=== PATIENT | female | born 1935 | race Caucasian/White ===

== ENCOUNTER 2016-10-17 06:42 | Observation (INO) | payer OTHER ==
[~2016-10-17] VITALS: Ht 157.5 cm; Wt 69.4 kg
--- NOTE | ~2016-10-17 | EKG ---
[place] [address] [facility] [place] [address] ELECTROCARDIOGRAM REPORT Name: ROSA EDUARDO Braden Room #: [facility]#: [id number] Admission: 10/17/16 Attend Phys: Discharge: Date of : 33 Report #: [id number] THIS REPORT FOR: //name// ED Test Date: 2016-10-17 Test Time: 06:48:21 Pat Name: ROSA EDUARDO Department: Room: Gender: F Safety Coordinator: JAIMIE : 1935 Requested By: Mary Engel Order Number: [id number] MD: Nabor Ye Measurements Intervals [place] Rate: 68 P: -29 ID: 126 QRS: 18 QRSD: 91 T: 45 QT: 503 QTc: 536 Interpretive Statements Sinus rhythm Abnormal R-wave progression, early transition Minimal ST depression, anterolateral leads Prolonged QT interval Compared to ECG 08/22/2016 16:18:13 ST (T wave) deviation now present Prolonged QT interval now present sinus rhythm has replaced probable atrial fibrillation Electronically Signed On 10-17-2016 8:42:27 CDT by Nabor Ye [email or web address] <ELECTRONICALLY SIGNED> By: Nabor Ye MD, FACC 10/17/16 [id number] Nabor Ye MD, [facility] /EPI
--- NOTE | ~2016-10-17 | 2DMMODE ---
[facility] [place] [address] 2 D/M-MODE ECHOCARDIOGRAM Name: JAYCEROSA Room #: 419-P [facility] IN .R.#: [id number] Admission: 10/17/16 Attend Phys: Kalen Mathur MD, Discharge: Date of : 33 Date of Service: 10/18/16 1153 Report #: [id number] THIS REPORT FOR: //name// APPROVED REPORT Study performed: 10/18/2016 09:40:24 EXAM: Comprehensive 2D, Doppler, and color-flow Echocardiogram Patient Location: Echo lab/Room 419 Blood Pressure: 137/58 mmHg HR: 73 bpm Rhythm: Irregular Other Information Study Quality: Good Indications Chest discomfort, short of breath, HTN, HLP 2D Dimensions RVDd: 31.27 mm LVEF(%): 55.28 (>50%) IVSd: 9.18 (7-11mm) LVOT Diam: 19.88 (18-24mm) LVDd: 42.22 mm PWd: 9.57 (7-11mm) LVDs: 30.20 (25-40mm) Aortic Root: 29.88 mm Sharp's LVEF: 55.28 % Volumes Left Atrial Volume (Systole) Single Plane 4CH: 39.41 mL Single Plane 2CH: 42.95 mL LA ESV Index: 27.00 mL/m2 Aortic Valve AoV Peak Jerardo.: 1.35 m/s AO Peak Gr.: 7.25 mmHg LV Max P.94 mmHg LV Max: 0.86 m/s Mitral Valve MV PHT: 80.51 ms MV E Max Jerardo.: 0.68 m/s E/A Ratio: 0.9 MV A Jerardo.: 0.79 m/s MV Decel. Time: 277.61 ms [facility] [place] [address] 2 D/M-MODE [facility]ARDIOGRAM [facility] #: [facility]-P ADM IN M.R.#: [id number] Admission: 10/17/16 Attend Phys: Kalen Mathur MD, Discharge: Date of : 33 Date of Service: 10/18/16 1153 Report #: [id number] Pulmonary Valve PV Peak Jerardo.: 0.98 m/s PV Peak Gr.: 3.86 mmHg Tricuspid Valve TR Peak Jerardo.: 2.73 m/s RAP Estimate: 5.00 mmHg TR Peak Gr.: 29.74 mmHg RVSP: 35.00 mmHg Left Ventricle The left ventricle is normal size. There is normal LV segmental wall motion. There is normal left ventricular wall thickness. Left ventricular systolic function is normal. LVEF is 55%. Grade I - abnormal relaxation pattern. Right Ventricle The right ventricle is normal size. The right ventricular systolic function is normal. Atria The left atrium size is normal. The right atrium size is normal. Aortic Valve The Aortic valve is sclerotic. No aortic regurgitation is present. There is no aortic valvular stenosis. Mitral Valve Mitral valve leaflets are mildly thickened. Mild mitral annular calcification. Mild mitral regurgitation. Tricuspid Valve The tricuspid valve is normal in structure. There is mild to moderate tricuspid regurgitation. The right atrial pressure is estimated at 5 mmHg. There is mild pulmonary hypertension with an estimated PAP of 35mmHg. Pulmonic Valve The pulmonary valve is normal in structure. Trace pulmonic regurgitation. Great Vessels The aortic root is normal in size. Ascending aorta is not well visualized. IVC is normal in size and collapses >50% with inspiration. Pericardium [facility] [address] [place] [address] 2 D/M-MODE [facility]ARDIOGRAM [facility]: [facility] Room #: 419-P [facility] IN .R.#: [id number] Admission: 10/17/16 Attend Phys: Kalen Mathur MD, Discharge: Date of : 33 Date of Service: 10/18/16 1153 Report #: [id number] There is no pericardial effusion. <Conclusion> The left ventricle is normal size. LVEF is 55%. The Aortic valve is sclerotic. Mitral valve leaflets are mildly thickened. Mild mitral annular calcification. Mild mitral regurgitation. There is mild to moderate tricuspid regurgitation. The right atrial pressure is estimated at 5 mmHg. There is mild pulmonary hypertension with an estimated PAP of 35mmHg. Trace pulmonic regurgitation. <ELECTRONICALLY SIGNED> By: Tera Burns MD 10/18/16 1153 1153 1153 Tera Burns MD /INF
[2016-10-17 06:42] VITALS: BP 110/74
[~2016-10-17 06:42] MED LIST: COLACE100 MG PO; LEVSIN0.125 MG PO; MAXZIDE-25 MG1 EACH PO; MIRALAX17 GM PO; ONDANSETRON HCL4 M2 PO; PRILOSEC20 MG PO; SIMVASTATIN40 MG PO; VOLTAREN GEL 1100 G2 TOP; ZOFRAN4 MG PO
[2016-10-17] MEDS ORDERED: TOPROL XL25 MG PO (07:00)
[2016-10-17] MEDS ORDERED: POTASSIUM20 PO (07:00)
[2016-10-17] MEDS ORDERED: ASPIR 8181 MG PO (07:01)
[2016-10-17] MEDS ORDERED: ANASPAZ0.125 MG SL (07:02)
[2016-10-17 07:03] LABS: HEMATOCRIT 37.8 % (37.0-47.0); HEMOGLOBIN 12.8 gm/dL (12.0-15.0); MCH 27.8 pg (26.0-34.0); MCHC 33.8 g/dL (28.0-37.0); MCV 82.4 fL (80.0-100.0); PLATELET COUNT 215 thou/uL (150-400); RBC 4.59 mil/uL (4.20-5.00); RDW 13.2 % (10.5-14.5); WBC 6.1 thou/uL (4.0-11.0)
[2016-10-17 07:10] LABS: MANUAL DIFF YES
[2016-10-17] MEDS ORDERED: OMEPRAZOLE20 M2 PO (07:11)
[2016-10-17 07:23] LABS: ANION GAP 16 mmol/L (7-16); BUN 12 mg/dL (7-18); CALCIUM 9.3 mg/dL (8.5-10.1); CHLORIDE 90 mmol/L (98-107); CO2 19 mmol/L (21-32); CREATININE 1.2 mg/dL (0.6-1.0); GLUCOSE 120 mg/dL (74-106); POTASSIUM 3.2 mmol/L (3.5-5.1); SODIUM 125 mmol/L (136-145); TROPONIN-I < 0.04 ng/mL (<0.04-0.07)
[2016-10-17 08:10] LABS: URINE BILIRUBIN NEGATIVE (Negative); URINE BLOOD NEGATIVE (Negative); URINE COLOR YELLOW; URINE GLUCOSE-RANDOM* NEGATIVE (Negative); URINE KETONES 2+ (Negative); URINE LEUKOCYTES-REFLEX NEGATIVE (Negative); URINE PROTEIN (DIPSTICK) NEGATIVE (Negative)
[2016-10-17 08:16] LABS: ABSOLUTE NEUTROPHILS 3.5 thou/uL (1.4-8.2); ANISOCYTOSIS SLIGHT; TOTAL CELL COUNT 100
[2016-10-17 10:54] VITALS: BP 152/64
[2016-10-17 11:10] VITALS: BP 166/75
[2016-10-17 15:28] VITALS: BP 135/65
[2016-10-17 20:00] VITALS: BP 140/64
[2016-10-18 03:23] VITALS: BP 122/48
[2016-10-18 06:02] LABS: HEMATOCRIT 34.8 % (37.0-47.0); HEMOGLOBIN 11.6 gm/dL (12.0-15.0); MCH 28.2 pg (26.0-34.0); MCHC 33.4 g/dL (28.0-37.0); MCV 84.2 fL (80.0-100.0); PLATELET COUNT 182 thou/uL (150-400); RBC 4.13 mil/uL (4.20-5.00); RDW 13.2 % (10.5-14.5); WBC 5.4 thou/uL (4.0-11.0)
[2016-10-18 06:17] LABS: MANUAL DIFF YES
[2016-10-18 06:22] LABS: ALBUMIN 2.9 g/dL (3.4-5.0); CALCIUM 8.5 mg/dL (8.5-10.1); CREATININE 1.1 mg/dL (0.6-1.0); TOTAL BILIRUBIN 0.4 mg/dL (<0.1-1.0); TOTAL PROTEIN 6.3 g/dL (6.4-8.2)
[2016-10-18 06:28] LABS: POTASSIUM 4.4 mmol/L (3.5-5.1)
[2016-10-18 07:41] VITALS: BP 137/58
[2016-10-18 08:36] LABS: ANISOCYTOSIS SLIGHT; TOTAL CELL COUNT 100
[2016-10-18 15:16] VITALS: BP 146/81
[2016-10-18 15:43] VITALS: BP 146/81
== END 2016-10-18 16:35 | disposition home or self-care (01) ==
LOC: ER 06:42 → EROBS 08:56 → 4E 08:56
PROVIDERS: Emergency Medicine; Family Medicine
DX: E87.6 Hypokalemia (principal); E83.42 Hypomagnesemia; E87.1 Hypo-osmolality and hyponatremia; R53.81 Other malaise; R11.0 Nausea; I10 Essential (primary) hypertension; E78.5 Hyperlipidemia, unspecified; K21.9 Gastro-esophageal reflux disease without esophagitis; G62.9 Polyneuropathy, unspecified; K58.1 Irritable bowel syndrome with constipation; K44.9 Diaphragmatic hernia without obstruction or gangrene; Z87.891 Personal history of nicotine dependence

== ENCOUNTER → 2017-09-19 | Outpatient (CLI) | payer OTHER ==
[~2017-09-19] MED LIST changes: +ANASPAZ0.125 MG SL; +ASPIR 8181 MG PO; +OMEPRAZOLE20 M2 PO; +POTASSIUM20 PO; +TOPROL XL25 MG PO
== END ==
LOC: RAD 15:04
DX: Z12.31 Encounter for screening mammogram for malignant neoplasm of breast (principal)

== ENCOUNTER → 2017-11-03 | Outpatient (CLI) | payer OTHER | LOC: ULTRA 05:48 | DX: R10.9 Unspecified abdominal pain (principal); Z90.49 Acquired absence of other specified parts of digestive tract ==

== ENCOUNTER → 2018-12-12 | Outpatient (CLI) | payer OTHER | LOC: RAD 10:36 | DX: Z12.31 Encounter for screening mammogram for malignant neoplasm of breast (principal) ==

== ENCOUNTER → 2020-02-18 | Outpatient (CLI) | payer OTHER | LOC: RAD 11:36 | PROVIDERS: ATTEND Family Medicine | DX: Z12.31 Encounter for screening mammogram for malignant neoplasm of breast (principal); N64.89 Other specified disorders of breast ==

== ENCOUNTER 2020-04-07 16:52 | Inpatient (IN) | payer OTHER ==
[~2020-04-07] VITALS: Ht 157.5 cm; Wt 77.1 kg
[2020-04-07 16:58] VITALS: BP 149/68
[2020-04-07 17:25] LABS: URINE BILIRUBIN NEGATIVE (Negative); URINE BLOOD TRACE (Negative); URINE CLARITY CLEAR; URINE COLOR YELLOW; URINE GLUCOSE-RANDOM* NEGATIVE (Negative); URINE KETONES NEGATIVE (Negative); URINE LEUKOCYTES-REFLEX 2+ (Negative); URINE NITRITE-REFLEX NEGATIVE (Negative); URINE PROTEIN (DIPSTICK) NEGATIVE (Negative); URINE SPECIFIC GRAVITY 1.015 (1.005-1.035); URINE UROBILINOGEN 0.2 E.U./dl (0.2-1.0)
[2020-04-07] MEDS ORDERED: ZOLOFT100 MG PO (17:36)
[2020-04-07] MEDS ORDERED: ZOCOR40 MG PO (17:36)
[2020-04-07] MEDS ORDERED: ZETIA10 MG PO (17:36)
[2020-04-07] MEDS ORDERED: PRILOSEC OTC20 MG PO (17:36)
[2020-04-07] MEDS ORDERED: TRIAMTERENE-HC1 EAC3 PO (17:37)
[2020-04-07] MEDS ORDERED: DAILY MULTIVIT1 EAC2 PO (17:37)
[2020-04-07] MEDS ORDERED: TOPROL XL25 MG PO (17:37)
[2020-04-07] MEDS ORDERED: CALCIUM500 MG PO (17:38)
[2020-04-07] MEDS ORDERED: MAGNESIUM250 M1 PO (17:38)
[2020-04-07] MEDS ORDERED: ZINC50 M2 PO (17:38)
[2020-04-07 17:44] LABS: BACTERIA-REFLEX 1-9 Few /HPF (None Seen); CRYSTALS None Seen /LPF (None Seen); SQUAMOUS 0-3 Few /LPF (0-3); URINE RBC 3-10 Few /HPF (0-2)
[2020-04-07 18:03] LABS: ABSOLUTE NEUTROPHILS 7.7 thou/uL (1.4-8.2); BASOPHILS 0.2 % (0.0-2.0); EOSINOPHILS 0.9 % (0.0-3.0); HEMATOCRIT 34.7 % (37.0-47.0); HEMOGLOBIN 11.5 gm/dL (12.0-15.0); LYMPHOCYTES 9.9 % (24.0-44.0); MCH 27.7 pg (26.0-34.0); MCHC 33.1 g/dL (28.0-37.0); MCV 83.6 fL (80.0-100.0); MONOCYTES 8.2 % (1.0-8.0); PLATELET COUNT 176 thou/uL (150-400); POLYS 80.8 % (36.0-66.0); RBC 4.15 mil/uL (4.20-5.00); RDW 13.9 % (10.5-14.5); WBC 9.6 thou/uL (4.0-11.0)
[2020-04-07 18:09] LABS: CALCIUM 9.2 mg/dL (8.5-10.1); CREATININE 1.6 mg/dL (0.6-1.0); POTASSIUM 3.3 mmol/L (3.5-5.1)
[2020-04-07 18:15] LABS: ALBUMIN 3.7 g/dL (3.4-5.0); TOTAL BILIRUBIN 0.8 mg/dL (0.2-1.0)
[2020-04-07 18:36] LABS: PROTIME 10.5 Seconds (9.3-11.4)
[2020-04-07 20:59] VITALS: BP 144/60
[2020-04-07 21:16] VITALS: BP 148/59
--- NOTE | 2020-04-08 02:27 | NUR ---
PT ADMITTED TO THE UNIT FROM THE ER AT 2145.PT IS A/O X4.PT ADMITTED WITH C/O DIARRHEA X1WEEK AND STOOL RECENTLY HAVE BLOOD.PT ALSO C/O LOWER ABDOMINAL CRAMPING.CT SCAN DONE AND NO BOWEL ABSTRUCTION SEND.PT C/O INCREASING BODY WEAKNESS.PT IS X1 ASSSIT TO BATHROOM OR BEDSIDE COMMODE.IV ACCESS ON LT AC .PT HAD NO STOOL FOR ME TILL THIS TIME.WILL CONTINUE TO MONITOR
[2020-04-08 07:43] VITALS: BP 127/60
--- NOTE | 2020-04-08 14:27 | NUR ---
Assumed care of pt at 0700. Pt feeling weak this am. CL diet. Talked to pt's daughter and updated on pt's status. Denies pain. Call light within reach. Fall precautions in place. Awaiting for Dr to round on pt. Will continue to monitor.
--- NOTE | 2020-04-08 18:45 | NUR ---
PATIENT ARRIVED FROM AT APPROX 1830. VSS; PATIENT HAD AN URGE TO HAVE A BM BUT HAD INCONTINENCE. STOOL IS LOOSE AND GREEN. ISO CART REQUESTED. ON COMMODE. WILL CALL WHEN FINISHED
[2020-04-09 02:11] VITALS: BP 155/68
[2020-04-09 03:36] LABS: CALCIUM 8.4 mg/dL (8.5-10.1); CREATININE 1.6 mg/dL (0.6-1.0)
[2020-04-09 03:40] LABS: HEMATOCRIT 32.2 % (37.0-47.0); HEMOGLOBIN 10.5 gm/dL (12.0-15.0); MCH 27.4 pg (26.0-34.0); MCHC 32.7 g/dL (28.0-37.0); MCV 83.9 fL (80.0-100.0); RBC 3.84 mil/uL (4.20-5.00); RDW 14.1 % (10.5-14.5); WBC 7.2 thou/uL (4.0-11.0)
--- NOTE | 2020-04-09 04:22 | NUR ---
ASSUMED PT CARE AROUND 193. VSS. AXOX4. PT WAS CAUGHT USING BEDSIDE COMMODE WITHOUT ASSISTANCE AND SAMPLE WAS COMPROMISED FOR COLLECTION. EDUCATED PT ON IMPORTANCE OF CALLING STAFF FOR SAFETY AND SAMPLE COLLECTION. AT AROUND 0200, PT CALLED OUT FOR CHEST PAIN. PER PT PAIN WAS RADIATING FROM LEFT SHOULDER TO CHEST. 02/16. PT IS UNABLE TO DESCRIBE THE PAIN QUALITY OTHER THAN PAIN. PT SAID PT HAD SAME PAIN THE NIGHT BEFORE AND IT WENT AWAY SO DID NOT REPORT IT. CALLED HOUSE SUP AND NOTIFIED THE CHEST PAIN. CALLED AND RECEIVED ORDERS FOR EKG AND TROPONIN. RESUTLS WERE REPORTED TO VIA TELEPHONE. NEW ORDERS FOR START TELEMETRY,RECHECK LABS,POTASSIUM PO RECEIVED. PT NO LONGER EXPERIENCING CHEST PAIN AT THIS TIME. WILL CONT TO MONITOR FOR ANY CHANGES IN CONDITION.
[2020-04-09 04:34] VITALS: BP 105/60
--- NOTE | 2020-04-09 07:55 | EKG ---
[facility] [place] [address] ELECTROCARDIOGRAM REPORT Name: ROSA EDUARDO Room #: 456- ADM IN M.R.#: [id number] Admission: 04/07/20 Attend Phys: Kalen Mathur MD, FAAF Discharge: Date of : 33 Report #: [id number] THIS REPORT FOR: cc: Kalen Mathur MD FAA FACE Kalen Mathur MD FAA FACE Nabor Ye MD [facility] THIS REPORT FOR: //name// [facility] Test Date: 2020-04-09 Test Time: 02:43:16 Pat Name: ROSA EDUARDO Department: Room: 456 P Gender: F Stem Sizer: [id number] : 1935 Requested By: Kalen Mathur Order Number: [id number] MD: Nabor Ye Measurements Intervals [place] Rate: 72 P: 63 OR: 141 QRS: 7 QRSD: 103 T: 39 QT: 456 QTc: 500 Interpretive Statements Sinus rhythm Borderline prolonged QT interval Compared to ECG 10/17/2016 06:48:21 ST (T wave) deviation no longer present Electronically Signed On 04-09-2020 7:55:02 CDT by Nabor Ye [email or web address] <ELECTRONICALLY SIGNED> By: Nabor Ye MD, FACC 04/09/20 0755 0243 Nabor Ye MD, FACC /EPI
[2020-04-09 09:51] LABS: POTASSIUM 3.1 mmol/L (3.5-5.1); TROPONIN-I <0.06 ng/mL (<0.06)
[2020-04-09 12:40] VITALS: BP 155/68
--- NOTE | 2020-04-09 15:44 | NUR ---
PT ADMITTED RELATED TO BLOODY DIARRHEA, CKD, AND LOW K+. CM REVIEWED CHART AND SPOKE WITH CARE TEAM. CM ATTEMTPED PC TO PT'S ROOM WITH NO ANSWER. CM CALLED AND SPOKE WITH PT'S DTR. SHE INDICATED THAT PT RESIDES IN A HOUSE ALONE WITH A RAMP TO ENTER AND 1 SMALL STEP DOWN TO UTILITY ROOM WITH GRAB BAR. SHE INDICATED THAT PT HAD BEEN INDEPENDENET WITH GAIT AND ADLS LEGAL TRANSCRIBER. SHE INDICATED NO KNOW HH HX OR SNF PLACEMENT. DTR INDICATED THAT THEY ANTICPATE PT RETURNING HOME ONCE MEDICALLY STABLE. CM TO FOLLOW INDICATED WITH DC PLANNING.
[2020-04-09 15:58] VITALS: BP 130/57
--- NOTE | 2020-04-09 17:04 | H ---
[facility] [place] [address] HISTORY AND PHYSICAL Name: ROSA EDUARDO Room #: 456-P ADM IN M.R.#: [id number] Admission: 04/07/20 Attend Phys: Kalen Mathur MD, FAAF Discharge: Date of : 33 Report #: [id number] THIS REPORT FOR: cc: Kalen Mathur MD FAA FACEP Kalen Mathur MD FAA FACEP Kalen Mathur MD FAA FACE ~ CC: Kalen Mathur DATE OF SERVICE: 04/08/2020 CHIEF COMPLAINT: Urinary tract infection, blood in stool, volume depletion. HISTORY OF PRESENT ILLNESS: The patient is an 84-year-old white female well known to me, patient of mine for many years, admitted to the Emergency Room last night after 1 week evolution of abdominal cramping pain, dysuria and bloody diarrhea seen on several occasions. She started on IV antibiotics and IV fluids in the Emergency Department and feels somewhat better today, but still feels weak and continues to have lower abdominal cramping pain. PAST MEDICAL HISTORY: Hypertension, hyperlipidemia, gastroesophageal reflux, neuropathy, irritable bowel syndrome, hiatal hernia. PAST SURGICAL HISTORY: Cholecystectomy, herniorrhaphy, bladder surgery for frequency and incontinence and carpal tunnel syndrome repair. MEDICATIONS: Aspirin 81 mg p.o. daily, Zoloft 100 mg p.o. daily, Prilosec 20 mg p.o. b.i.d., simvastatin 40 mg p.o. q.p.m., Zetia 10 mg p.o. daily, triamterene/hydrochlorothiazide 75/50 one p.o. q.a.m., metoprolol succinate 25 mg 1/2 p.o. daily, multivitamin 1 p.o. daily, zinc amino acid chelate 1 p.o. daily, calcium carbonate 600 mg p.o. daily, magnesium tablet daily, docusate sodium 100 mg 1 p.o. b.i.d. p.r.n. ALLERGIES: No known drug allergies. SOCIAL HISTORY: , quit smoking around 2015. Nondrinker. FAMILY HISTORY: Noncontributory. REVIEW OF SYSTEMS: GENERAL: No fever, chills, nausea or vomiting. She has had bloody diarrhea. EYES: No visual changes. ENT: No problems with hearing, swallow, taste or smell. CARDIOVASCULAR: No chest pain or palpitations. RESPIRATORY: No difficulty breathing. GASTROINTESTINAL: She has got lower abdominal pain, bloody diarrhea. GENITOURINARY: She has urinary tract infection with dysuria. [address] [address] HISTORY AND PHYSICAL Name: ROSA EDUARDO Room #: 456-P [facility] IN M.R.#: [id number] Admission: 04/07/20 Attend Phys: Kalen Mathur MD, FAAF Discharge: Date of : 34 Report #: [id number] MUSCULOSKELETAL: Some arthritic changes. NEUROLOGIC: She has neuropathy. PSYCHIATRIC: Frustrated, not depressed. DERMATOLOGIC: No disturbing lesions or rash. Remainder of system review is negative. OBJECTIVE: VITAL SIGNS: Temperature is 36.7, pulse 78, respirations 16, blood pressure 149/68, she is 96% oxygen on room air. She weighs 77.11 kilograms or 170 pounds. GENERAL: She appears fatigued, but is in no acute distress. Speaks full sentences and is engaging in conversation. HEENT: Pupils are equal, round, reactive to light and accommodation. Extraocular muscles intact. Pharynx unremarkable. Mucous membranes are dry. NECK: Supple. COR: S1, S2 regular. CHEST: Clear. ABDOMEN: Soft, positive bowel sounds. She has tenderness in the suprapubic midline. No guarding or rebound. EXTREMITIES: No cyanosis, clubbing or edema. NEUROLOGICAL: She is intact without focal neurologic deficit. LABORATORY EVALUATION: White count is 9.6, hemoglobin 11.5, hematocrit 34.7, platelets 176,000. Differential white count, 81% segmented neutrophils, 9.9% lymphocytes, 8.2% monocytes. Serum chemistry: Sodium 135, potassium 3.3, chloride 96, CO2 of 31, anion gap 8, BUN 20, creatinine 1.6, estimated GFR 31, glucose 107, calcium 9.2. CT scan of the abdomen done from the Emergency Department showed slightly prominent loops of bowel with slight wall thickening suggested in the left mid abdomen, no definite bowel obstruction, definite bowel wall thickening is not seen suggesting definitive changes of colitis, atherosclerotic changes in the aorta are seen. Urinalysis showed clear urine, specific gravity 1.015, pH 7.0, protein negative, ketones negative, trace blood seen, nitrite negative, urobilinogen 0.2, leukocyte esterase 2+, 3-10 red cells, 16-25 white cells seen and 1-9 bacteria. ASSESSMENT: Urinary tract infection, bloody diarrhea with probable colitis, volume depletion, acute kidney injury, debility, hypokalemia. PLAN: Admit to hospital, IV fluid hydration, IV antibiotics with Rocephin. Follow cultures. Follow labs and longitudinal, PT eval and treat. <ELECTRONICALLY SIGNED> By: Kalen Mathur MD, FAAFP, FACEP 04/09/20 1704 [id number] [id number] Kalen Mathur MD, CHIQUIS, FACEP /nt
[2020-04-09 19:50] VITALS: BP 127/48
--- NOTE | 2020-04-10 02:54 | NUR ---
PATIENT WAS C/O GERD CALLED DR. LLOYD ORDER OF PROTONIX 40 MG BID. PATIENT HAD LOOSE STOOLS THIS SHIFT PATIENT C/O SHE IS NOT GETIING FIBER RESTRICTED DIET. FALL PRECAUTION IN PLACE. PATIENT IN BED ASLEEP AT THIS TIME BREATHING REGULAR AND UNLABOURED.
[2020-04-10 06:08] LABS: URINE BILIRUBIN NEGATIVE (Negative); URINE BLOOD NEGATIVE (Negative); URINE CLARITY CLEAR; URINE COLOR YELLOW; URINE GLUCOSE-RANDOM* NEGATIVE (Negative); URINE KETONES NEGATIVE (Negative); URINE LEUKOCYTES-REFLEX NEGATIVE (Negative); URINE NITRITE-REFLEX NEGATIVE (Negative); URINE PROTEIN (DIPSTICK) NEGATIVE (Negative); URINE SPECIFIC GRAVITY 1.015 (1.005-1.035); URINE UROBILINOGEN 0.2 E.U./dl (0.2-1.0)
[2020-04-10 06:20] LABS: ABSOLUTE NEUTROPHILS 3.9 thou/uL (1.4-8.2); BASOPHILS 0.3 % (0.0-2.0); EOSINOPHILS 2.7 % (0.0-3.0); HEMATOCRIT 29.8 % (37.0-47.0); HEMOGLOBIN 9.8 gm/dL (12.0-15.0); LYMPHOCYTES 22.5 % (24.0-44.0); MCH 27.9 pg (26.0-34.0); MCHC 32.9 g/dL (28.0-37.0); MCV 84.7 fL (80.0-100.0); MONOCYTES 8.5 % (1.0-8.0); PLATELET COUNT 167 thou/uL (150-400); RBC 3.51 mil/uL (4.20-5.00); RDW 14.2 % (10.5-14.5); WBC 5.9 thou/uL (4.0-11.0)
[2020-04-10 06:37] LABS: ALBUMIN 2.6 g/dL (3.4-5.0); CALCIUM 8.1 mg/dL (8.5-10.1); CREATININE 1.4 mg/dL (0.6-1.0); POTASSIUM 3.8 mmol/L (3.5-5.1); TOTAL BILIRUBIN 0.2 mg/dL (0.2-1.0); TOTAL PROTEIN 6.5 g/dL (6.4-8.2)
[2020-04-10 07:10] VITALS: BP 121/54
--- NOTE | 2020-04-10 11:42 | NUR ---
PT ALERT AND ORIENTED TIMES FOUR, WITH BLUNTED AFFECT. VSS, IVF INFUSING PER ORDER. PT DENIES PAIN. PT TOLERATES MEDS AND MEALS. PT SLOWLY PROGRESSING TOWRADS POC GOALS.
[2020-04-10 11:50] VITALS: BP 133/55
[2020-04-10 14:00] VITALS: BP 133/55
== END 2020-04-10 14:50 | disposition home or self-care (01) | DRG 377 ==
LOC: ER 16:52 → EROBS 20:43 → 4W 20:43 → 4S 20:43 → 4W 04-08 18:08
PROVIDERS: Emergency Medicine; ADMIT Family Medicine; ATTEND Family Medicine
DX: K92.1 Melena (principal); E43 Unspecified severe protein-calorie malnutrition; N39.0 Urinary tract infection, site not specified; N17.9 Acute kidney failure, unspecified; E78.00 Pure hypercholesterolemia, unspecified; G62.9 Polyneuropathy, unspecified; I12.9 Hypertensive chronic kidney disease with stage 1 through stage 4 chronic kidney disease, or unspecified chronic kidney disease; K21.9 Gastro-esophageal reflux disease without esophagitis; N18.9 Chronic kidney disease, unspecified; E87.6 Hypokalemia; E86.9 Volume depletion, unspecified; Z79.899 Other long term (current) drug therapy
CPT/HCPCS: 10040; 10195

== ENCOUNTER 2020-06-22 11:44 | Emergency (ER) | payer OTHER ==
[~2020-06-22] VITALS: Ht 157.5 cm; Wt 77.1 kg
[~2020-06-22 11:44] MED LIST changes: +CALCIUM500 MG PO; +DAILY MULTIVIT1 EAC2 PO; +MAGNESIUM250 M1 PO; +PRILOSEC OTC20 MG PO; +TRIAMTERENE-HC1 EAC3 PO; +ZETIA10 MG PO; +ZINC50 M2 PO; +ZOCOR40 MG PO; +ZOLOFT100 MG PO
[2020-06-22 12:42] LABS: URINE BILIRUBIN NEGATIVE (Negative); URINE BLOOD NEGATIVE (Negative); URINE CLARITY CLEAR; URINE COLOR YELLOW; URINE GLUCOSE-RANDOM* NEGATIVE (Negative); URINE KETONES NEGATIVE (Negative); URINE LEUKOCYTES-REFLEX NEGATIVE (Negative); URINE NITRITE-REFLEX NEGATIVE (Negative); URINE PROTEIN (DIPSTICK) NEGATIVE (Negative); URINE UROBILINOGEN 0.2 E.U./dl (0.2-1.0)
[2020-06-22 14:42] LABS: ABSOLUTE NEUTROPHILS 4.8 thou/uL (1.4-8.2); BASOPHILS 0.6 % (0.0-2.0); EOSINOPHILS 0.7 % (0.0-3.0); HEMATOCRIT 33.9 % (37.0-47.0); LYMPHOCYTES 15.4 % (24.0-44.0); MCH 27.3 pg (26.0-34.0); MCHC 32.3 g/dL (28.0-37.0); MCV 84.5 fL (80.0-100.0); MONOCYTES 8.7 % (1.0-8.0); PLATELET COUNT 182 thou/uL (150-400); POLYS 74.6 % (36.0-66.0); RBC 4.02 mil/uL (4.20-5.00); RDW 14.5 % (10.5-14.5); WBC 6.5 thou/uL (4.0-11.0)
[2020-06-22 14:48] LABS: CALCIUM 9.5 mg/dL (8.5-10.1); CREATININE 1.9 mg/dL (0.6-1.0); POTASSIUM 3.4 mmol/L (3.5-5.1)
[2020-06-22 15:00] LABS: ALBUMIN 3.5 g/dL (3.4-5.0); TOTAL BILIRUBIN 0.4 mg/dL (0.2-1.0); TOTAL PROTEIN 7.1 g/dL (6.4-8.2)
[2020-06-22] MEDS ORDERED: PHENAZOPYRIDIN200 M2 PO ×2 (16:28→16:53)
[2020-06-22] MEDS ORDERED: ONDANSETRON HCL4 M2 PO ×2 (16:53)
[2020-06-22 17:39] VITALS: BP 122/74
== END 2020-06-22 17:39 | disposition home or self-care (01) ==
LOC: ER 11:44
PROVIDERS: Physician Assistant
DX: R30.0 Dysuria (principal); I10 Essential (primary) hypertension; K21.9 Gastro-esophageal reflux disease without esophagitis; E78.5 Hyperlipidemia, unspecified; Z79.82 Long term (current) use of aspirin; Z79.899 Other long term (current) drug therapy